=== PATIENT | female | born 1995 | race Caucasian/White ===

== ENCOUNTER 2017-08-10 20:32 | Emergency (ER) | payer BC ==
[~2017-08-10] VITALS: Ht 172.7 cm; Wt 87.7 kg
[~2017-08-10 20:32] MED LIST: ABL5 PO; ACET325T96 PO; ATR25 PO; ESTR0.5T3 PO; LORA-741 PO; SERT-234 PO
[2017-08-10 20:51] VITALS: TEMP 36.8; Ht 172.7 cm; Wt 87.7 kg
[2017-08-10] MEDS ORDERED: METOCLOPRAMIDE HCL INJ 5 MG/ML 2 ML VIAL IV STA (21:41)
[2017-08-10] MEDS ORDERED: MAGNESIUM SULFATE 1GM / D5W 1 GM BAG IV STA (21:41)
[2017-08-10] MEDS ORDERED: ACETAMINOPHEN 500 MG TAB PO STA (21:41)
[2017-08-10] MEDS ORDERED: KETOROLAC TROMETHAMINE 30 MG/ML VIAL IV STA (21:41)
[2017-08-10] MEDS ORDERED: SODIUM CHLORIDE 0.9% 1000ML 1,000 ML IV STA (21:41)
[2017-08-10] MEDS ORDERED: DiphenhydrAMINE HCL 50 MG/ML VIAL IV STA (21:41)
[2017-08-10 22:02] LABS: URINE APPEARANCE CLEAR (CLEAR); URINE BILIRUBIN NEG (NEG); URINE COLOR YELLOW; URINE NITRITE NEG (NEG); URINE PH 5.5 (4.5-7.5); UROBILINOGEN NEG (NEG)
[2017-08-10 22:04] LABS: MANUAL MICROSCOPIC REQUIRED? NO; REVIEW REQ? NO
--- NOTE | 2017-08-10 22:43 | EMERGENCY ROOM VISIT NOTE ---
History Report prepared by Lorri: Damian Muñoz Under the Supervision of: Dr. Jonathon Garcia M.D. First contact with patient: 21:09 Chief Complaint: HEADACHE Stated Complaint: HEADACHE,LIGHT SENSITIVE,DIZZY,STIFF NECK History of Present Illness The patient is a 21 year old white female with a past medical history of anxiety and depression who presents to the ED with a cc of waxing and waning left sided headache beginning two days ago. Localizes pain to left forehead. Was unable to get out of bed two days ago, but symptoms improved yesterday. Symptoms then worsened later in the day today. Positive photophobia and dizziness. Additional symptoms began shortly prior to arrival. Notes she had a concussion about 1.5 years ago with similar symptoms. Negative abdominal pain, nausea, vomiting, fevers, or chills. No recent falls or trauma. Admits that she occasionally uses marijuana. Source of History: patient Onset: Two days ago Position: head (left forehead) Timing: waxes/wanes Associated Symptoms: No fevers, No chills, No nausea, No vomiting, No abdominal pain Note: Positive: photophobia and dizziness. Review of Systems See HPI for pertinent positives and negatives. A total of ten systems were reviewed and were otherwise negative. Past Medical & Surgical Medical Problems: (1) Anxiety (2) Depression (3) History of concussion (4) IBS (irritable bowel syndrome) (5) IBS (irritable bowel syndrome) (6) Panic disorder Surgical Problems: (1) [place] teeth extracted Family History Cancer Lung disease Social History Smoking Status: Never Smoker Drug Use: marijuana Marital Status: in relationship Housing Status: lives with significant other Occupation Status: [employer] student Current/Historical Medications Scheduled Estradiol (Estradiol), 0.5 MG PO DAILY Sertraline (Zoloft), 200 MG PO DAILY Scheduled PRN Hydroxyzine HCl (Hydroxyzine HCl), 50 MG PO HSZ PRN for Insomnia Lorazepam (Ativan), 0.5 MG PO DAILY PRN for Severe Anxiety Allergies Coded Allergies: Amoxicillin (Verified Allergy, Mild, rash, 08/10/17) Physical Exam Vital Signs Date Time Temp Pulse Resp B/P (MAP) Pulse Ox O2 Delivery O2 Flow Rate FiO2 08/10/17 23:28 57 120/67 97 08/10/17 22:16 89 18 126/78 99 08/10/17 20:51 36.8 109 18 124/81 99 Room Air Physical Exam GENERAL: Awake, alert, well-appearing, NAD HENT: Normocephalic, atraumatic. EYES: Normal conjunctiva. Sclera non-icteric. NECK: Supple. No nuchal rigidity. FROM. RESPIRATORY: CTAB, no rhonchi, wheezing, crackles CARDIAC: RRR, no MRG ABDOMEN: Soft, NTND, BS+ MSK: No chest wall TTP, no LE edema NEURO: GCS 15, CN 2-12 intact, moves all 4s on command. No drift. Good finger to nose. 5/5 UE and LE strength. No sensory deficit. SKIN: No rash or jaundice noted. Medical Decision & Procedures Laboratory Results Test 08/10/17 21:55 Urine Color YELLOW Urine Appearance CLEAR (CLEAR) Urine pH 5.5 (4.5-7.5) Urine Specific [place] 1.010 (1.000-1.030) Urine Protein NEG (NEG) Urine Glucose (UA) NEG (NEG) Urine Ketones NEG (NEG) Urine Occult Blood NEG (NEG) Urine Nitrite NEG (NEG) Urine Bilirubin NEG (NEG) Urine Urobilinogen NEG (NEG) Urine Leukocyte Esterase NEG (NEG) Urine Test NEG (NEG) Laboratory results reviewed by me Medications Administered Medications (Trade) Dose Ordered Sig/Shira Route Start Time Stop Time Status Last Admin Dose Admin Sodium Chloride 1,000 ml @ 999 mls/hr Q1H1M STAT IV 08/10/17 21:41 08/10/17 22:41 DC 08/10/17 22:09 999 MLS/HR Metoclopramide HCl (Reglan Inj) 10 mg NOW STAT IV 08/10/17 21:41 08/10/17 21:49 DC 08/10/17 22:12 10 MG Diphenhydramine HCl (Benadryl Inj) 50 mg NOW STAT IV 08/10/17 21:41 08/10/17 21:49 DC 08/10/17 22:12 50 MG Magnesium Sulfate (Magnesium Sulfate) 1 gm NOW STAT IV 08/10/17 21:41 08/10/17 21:49 DC 08/10/17 22:10 1 GM Acetaminophen (Tylenol Tab) 1,000 mg NOW STAT PO 08/10/17 21:41 08/10/17 21:49 DC 08/10/17 22:09 1,000 MG Ketorolac Tromethamine (Toradol Inj) 30 mg NOW STAT IV 08/10/17 21:41 08/10/17 21:49 DC 08/10/17 22:10 30 MG ED Course 2120: The patient was evaluated in room A11A. A complete history and physical exam was performed. 2249: I reevaluated the patient. Discussed results and discharge instructions: she verbalized understanding and agreement. The patient is ready for discharge. Medical Decision The patient is a 21 year old white female with a past medical history of anxiety and depression who presents to the ED with a cc of waxing and waning left sided headache beginning two days ago. Differential diagnosis: Etiologies such as migraine headache, meningitis, sinusitis, CO exposure, ICH, SAH, infection, tumor, headache, sinus thrombosis, arterial dissection, as well as others were entertained. Patient was seen and evaluated at the bedside. Patient hasn't had some intermittent headache-like symptoms are primarily frontal in nature. Patient not taking anything for pain. Patient had had a prior history of a concussion type headache which felt similar. Patient denied any recent trauma does not take any blood thinning medications. No nausea, vomiting, fevers, chills. Patient not take any recent antibiotics. Patient did have a UA and UPT which were completed. Patient's UA and UPT negative. Patient was feeling much improved after headache cocktail. Patient had no signs of meningismus, afebrile , no neurologic deficit. Thus, less likely to be ICH, thrombosis, or infectious in nature. Patient was informed of her findings. Patient tolerated by mouth was able to ambulate without difficult. Patient was given strict follow-up, discharge, return precautions. Medication Reconcilliation Current Medication List: was personally reviewed by me Blood Pressure Screening Patient's blood pressure: Normal blood pressure Blood pressure disposition: Did not require urgent referral Impression Primary Impression: Migraine Scribe Attestation The scribe's documentation has been prepared under my direction and personally reviewed by me in its entirety. I confirm that the note above accurately reflects all work, treatment, procedures, and medical decision making performed by me. Departure Information Dispostion Home / Self-Care Referrals No Doctor, Assigned (PCP) Patient Instructions ED Headache Migraine, My [facility] Additional Instructions Please return to the emergency department if you have worsening or recurrent symptoms not amenable to at-home treatment. Please call for a follow-up appointment with her primary care physician. Please take your medications as prescribed. If you have other concerns and/or complaints please feel free to also call your primary care physician's office or return the ED for further evaluation, management, and treatment. You may take 600 mg Ibuprofen every 6 hours as needed for pain with food for no more than 2 consecutive days. You may take tylenol 1000mg every 6 hours as needed for pain. You may take motrin and tylenol separately or at the same time. You have been examined and treated today on an emergency basis only. This is not a substitute for, or an effort to provide, complete comprehensive medical care. It is impossible to recognize and treat all injuries or illnesses in a single emergency department visit. It is therefore important that you follow up closely with [facility]. Call as soon as possible for an appointment. Thank you for your time and consideration. I look forward to speaking with you again soon. Please don't hesitate to call us if you have any questions. Problem Qualifiers Primary Impression: Migraine Migraine type: without aura Status migrainosus presence: without status migrainosus Intractability: not intractable Qualified Codes: G43.009 - Migraine without aura, not intractable, without status migrainosus
[2017-08-10 23:28] VITALS: BP 120/67; PULSE 57; O2SAT 97
== END 2017-08-10 23:29 | disposition home or self-care (01) ==
LOC: C.EDB 20:33 → C.EDA 23:29
DX: G43.009 Migraine without aura, not intractable, without status migrainosus (principal); F41.9 Anxiety disorder, unspecified; F32.9 Major depressive disorder, single episode, unspecified; K58.9 Irritable bowel syndrome, unspecified; Z80.9 Family history of malignant neoplasm, unspecified; Z83.6 Family history of other diseases of the respiratory system; Z79.899 Other long term (current) drug therapy

== ENCOUNTER → 2018-07-09 | Outpatient (CLI) | payer BC ==
[~2018-07-09] MED LIST changes: -ABL5 PO; -ACET325T96 PO
== END | disposition home or self-care (01) ==
LOC: C.PAPS 18:33
PROVIDERS: ATTEND Obstetrics & Gynecology
DX: Z01.411 Encounter for gynecological examination (general) (routine) with abnormal findings (principal); R87.612 Low grade squamous intraepithelial lesion on cytologic smear of cervix (LGSIL)

== ENCOUNTER → 2018-07-09 | Outpatient (CLI) | payer BC | END | disposition home or self-care (01) | LOC: C.LABSPEC 17:29 | PROVIDERS: ATTEND Obstetrics & Gynecology | DX: Z11.3 Encounter for screening for infections with a predominantly sexual mode of transmission (principal) ==